=== PATIENT | male | born 1990 | race African-American/Black ===

== ENCOUNTER 2016-12-30 09:31 | Emergency (ER) | payer OTHER ==
[2016-12-30 09:53] VITALS: RESP 18
[2016-12-30] MEDS ORDERED: PROPARACAINE 0.5% OPHTH DROPS 15 ML BTL RIGHT EYE STA (10:21)
--- NOTE | 2016-12-30 10:37 | ED ---
General Adult HPI - General Chief complaint: Eye Problems Stated complaint: IHS FB left eye Time Seen by Provider: 12/30/16 10:20 Source: patient, RN notes reviewed Mode of arrival: ambulatory Limitations: no limitations - History of Present Illness Initial comments: Patient 26-year-old male who presents emergency room today with a chief complaint of possible foreign body sensation here to the left eye. 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 He states he went immediately to the eyewash wall shows I felt better but as the day went on began to Become more irritated. States still this morning still having this foreign body sensation. He denies any other complaints or symptoms. Patient denies any recent fever, chills, shortness of breath, chest pain, back pain, abdominal pain, nausea or vomiting, numbness or tingling, dysuria or hematuria, constipation or diarrhea, headaches or visual changes, or any other complaints. - Related Data Previous Rx's Medication Instructions Recorded Tobramycin 0.3% Ophth Soln [Tobrex 1 - 2 drop LEFT EYE QID 7 Days 12/30/16 0.3% Ophth Soln] Allergies Allergy/AdvReac Type Severity Reaction Status Date / Time No Known Allergies Allergy Verified 12/30/16 10:09 Review of Systems ROS Statement: Those systems with pertinent positive or pertinent negative responses have been documented in the HPI. ROS Other: All systems not noted in ROS Statement are negative. Past Medical History Past Medical History: No Reported History History of Any Multi-Drug Resistant Organisms: None Reported Past Surgical History: No Surgical Hx Reported Past Psychological History: No Psychological Hx Reported Smoking Status: Never smoker Past Alcohol Use History: None Reported Past Drug Use History: None Reported General Exam - General Exam Comments Initial Comments: General: The patient is awake and alert, in no distress, and does not appear acutely ill. Eye: Pupils are equal, round and reactive to light, extra-ocular movements are intact. No nystagmus. There is normal conjunctiva bilaterally. No signs of icterus. Ears, nose, mouth and throat: There are moist mucous membranes and no oral lesions. Neck: The neck is supple, there is no tenderness or JVD. Cardiovascular: There is a regular rate and rhythm. No murmur, rub or gallop is appreciated. Respiratory: Lungs are clear to auscultation, respirations are non-labored, breath sounds are equal. No wheezes, stridor, rales, or rhonchi. Musculoskeletal: Normal ROM, no tenderness. Strength 5/5. Sensation intact. Pulses equal bilaterally 2+. Neurological: A&O x 3. CN II-XII intact, There are no obvious motor or sensory deficits. Coordination appears grossly intact. Speech is normal. Skin: Skin is warm and dry and no rashes or lesions are noted. Psychiatric: Cooperative, appropriate mood & affect, normal judgment. Limitations: no limitations Course Vital Signs 12/30/16 09:50 Temperature 99.9 F H Pulse Rate 89 Respiratory 18 Rate Blood Pressure 137/90 O2 Sat by Pulse 98 Oximetry Procedures - Procedures Initial comment: Patient's left eye stained with proparacaine and fluorescein. Symptoms resolved with this. Checked underneath [place] lamp revealing small corneal abrasion to the 3 o'clock position. No foreign body. Lids were everted. 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 Please return to emergency room if any symptoms increase or worsen or for any other concerns Prescriptions: Tobramycin 0.3% Ophth Soln [Tobrex 0.3% Ophth Soln] 1 - 2 drop LEFT EYE QID 7 Days Referrals: None,Stated [Primary Care Provider] - 1-2 days Apolinar Jackson MD [STAFF PHYSICIAN] - 1-2 days Time of Disposition: 10:36
[2016-12-30 10:43] VITALS: BP 127/71; PULSE 91; TEMP 97.7
== END 2016-12-30 10:59 | disposition home or self-care (01) ==
LOC: EC 09:31
DX: S05.02XA Injury of conjunctiva and corneal abrasion without foreign body, left eye, initial encounter (principal); X58.XXXA Exposure to other specified factors, initial encounter; Y99.0 Civilian activity done for income or pay
CPT/HCPCS: 99283

== ENCOUNTER 2017-01-16 08:37 | Emergency (ER) | payer OTHER ==
[2017-01-16 08:44] VITALS: BP 145/86; PULSE 97; RESP 18
--- NOTE | 2017-01-16 09:31 | ED ---
General Adult HPI - General Chief complaint: Needlestick/Exposure Stated complaint: Exposure-[facility]HS Time Seen by Provider: 01/16/17 08:51 Source: patient, RN notes reviewed Mode of arrival: ambulatory Limitations: no limitations - History of Present Illness Initial comments: Patient is a 26-year-old male presents emergency room for evaluation of needle stick injury. 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 Patient states he was scooping up laundry and a pair of surgical scissors punctured him in his left hand. Patient states that there was blood during the puncture. Patient denies any significant pain. Patient states he was told to come down here to get evaluated. Patient states he is up-to-date in his tetanus vaccine. Patient states he is up-to-date in his hepatitis B vaccine. Patient denies any significant wound or pain from the puncture site. Patient denies any other injuries during incident. - Related Data Home Medications Medication Instructions Recorded Confirmed No Known Home Medications [No 01/16/17 01/16/17 Known Home Medications] Allergies Allergy/AdvReac Type Severity Reaction Status Date / Time No Known Allergies Allergy Verified 01/16/17 08:51 Review of Systems ROS Statement: Those systems with pertinent positive or pertinent negative responses have been documented in the HPI. ROS Other: All systems not noted in ROS Statement are negative. Past Medical History Past Medical History: Asthma History of Any Multi-Drug Resistant Organisms: None Reported Past Surgical History: No Surgical Hx Reported Past Psychological History: No Psychological Hx Reported Smoking Status: Never smoker Past Alcohol Use History: None Reported Past Drug Use History: None Reported General Exam - General Exam Comments Initial Comments: Sitting in exam room, no acute distress. Limitations: no limitations General appearance: alert, in no apparent distress Head exam: Present: atraumatic, normocephalic, normal inspection Eye exam: Present: normal appearance ENT exam: Present: normal exam Neck exam: Present: normal inspection Respiratory exam: Present: normal lung sounds bilaterally. Absent: respiratory distress Cardiovascular Exam: Present: regular rate, normal rhythm, normal heart sounds Extremities exam: Present: normal inspection Back exam: Present: normal inspection Neurological exam: Present: alert, oriented X3, CN II-XII intact, normal gait Psychiatric exam: Present: normal affect, normal mood Skin exam: Present: warm, dry, intact, normal color. Absent: rash Course Vital Signs 01/16/17 01/16/17 08:42 09:47 Pulse Rate 97 97 Respiratory 18 18 Rate Blood Pressure 145/86 145/86 O2 Sat by Pulse 97 97 Oximetry Medical Decision Making - Medical Decision Making Patient is a 26-year-old male presents emergency room for evaluation needle stick exposure. No wound noted on exam. Labs drawn. Patient declined HIV prophylaxis. Return parameters discussed. Disposition Clinical Impression: Needlestick injury accident with exposure to body fluid Disposition: HOME SELF-CARE Condition: Good Instructions: Needle Stick Injuries (ED) Additional Instructions: Please follow-up with blood work results. If any new symptom arises or symptoms worsen, return to ER as soon as possible. Referrals: Adrián Kline MD [Primary Care Provider] - 1-2 days Time of Disposition: 09:30
== END 2017-01-16 09:47 | disposition home or self-care (01) ==
LOC: EC 08:37
DX: S61.432A Puncture wound without foreign body of left hand, initial encounter (principal); W46.1XXA Contact with contaminated hypodermic needle, initial encounter; Y93.E2 Activity, laundry; Y92.69 Other specified industrial and construction area as the place of occurrence of the external cause
CPT/HCPCS: 99282

== ENCOUNTER → 2017-02-02 | Outpatient (CLI) | payer MEDICAID ==
--- NOTE | 2017-02-02 18:13 | CONS ---
DATE OF CONSULTATION: 02/02/2017 This patient is a 26-year-old gentleman who has been evaluated in the sleep center for possible obstructive sleep apnea/hypopnea syndrome. The patient was referred to the sleep center by a doctor's clinic. 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 HISTORY OF PRESENT ILLNESS/SLEEP-WAKE EVALUATION: The patient's usual sleep schedule on working days is from around 10 p.m. until 6 a.m., and on weekends from around 11 p.m. until 9 a.m. No problems with falling asleep. He has a TV set in the bedroom. He sleeps on his back and side position. Occasionally he has snoring. He wakes up from sleep at least once to use the restroom and also to drink water. He has a dry mouth during the night. He denied any significant sleepiness during the day. [place] Sleepiness Scale is 1. But he takes at least one nap at 4 to 5 p.m. during the day. His weight has decreased over the last 10 years from 325 pounds to 288 pounds. No history of hypnagogic hallucinations or sleep paralysis or cataplexy. PAST MEDICAL HISTORY: Basically none. MEDICATIONS: None. PAST SURGICAL HISTORY: None. FAMILY HISTORY: Hypertension in his grandmother. SOCIAL HISTORY: Negative for smoking. Occasional alcohol consumption. REVIEW OF SYSTEMS: No fevers. No double vision. No recent chest pain. No shortness of breath. No abdominal pain. No bleeding episodes. No blood in urine. No seizure episodes. Awakenings from sleep with dry mouth. Sometimes tiredness and sleepiness during the day. Naps at 4 p.m. PHYSICAL EXAM: The patient is a pleasant 26-year-old -[place] gentleman without distress. VITAL SIGNS: Blood pressure 129/95, heart rate 100, respiratory rate 16. Height 5 feet 9 inches. Weight 283. BMI 41.7. Neck 18-1/4 inches in circumference. Temperature 98.6. Oxygen saturation at room air 97%. HEENT: PERRLA. EOMI. Evaluation of oropharynx showed tongue protrudes midline. Retrognathia 2 mm. Extremely low position of soft palate. Some restriction of nasal breathing. NECK: Supple. No JVD. Thyroid is not palpable. LUNGS: Clear to percussion and to auscultation. Good air exchange. No wheezing or rhonchi. HEART: S1, S2 regular. No murmurs, gallops or rubs. ABDOMEN: Obese. EXTREMITIES: No clubbing or cyanosis. 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 Cranial nerves 2 through 7 are intact. There is no fasciculation or atrophy noted. No focal deficits observed. IMPRESSION: 1. Occasional snoring, extremely low position of soft palate, big neck at 18-1/ 4 inches in circumference, awakening from sleep with dry mouth and nocturia, naps during the day; obstructive sleep apnea/hypopnea syndrome. 2. Obesity; BMI 41.7. 3. Restriction of nasal breathing. 4. Patient takes naps every day; possible excessive daytime sleepiness. PLAN: 1. Polysomnography for evaluation of patients breathing during sleep. 2. CPAP/BiPAP titration if sleep study confirms obstructive sleep apnea/ hypopnea syndrome. 3. Preferable position during sleep on the side. 4. No driving if feeling any sleepiness. Patient is aware of civil and criminal liability for unsafe driving. 5. I will see this patient for follow-up visit to explain results of the testing and follow-up plan. Thank you very much for referring this patient for consultation. Sincerely, Tobias Cui. , PhD, FAASM. Diplomat of [place] [employer], Sleep Medicine Board by [place] [employer] [place] [employer] Lathe Operator of [facility]
== END ==
LOC: SLEEP 15:39
PROVIDERS: ATTEND Internal Medicine
DX: G47.33 Obstructive sleep apnea (adult) (pediatric) (principal); E66.9 Obesity, unspecified
CPT/HCPCS: 99211